=== PATIENT | male | born 1990 | race Two or more races ===

== ENCOUNTER 2019-07-25 04:14 | Inpatient (IN) | payer MEDICAID ==
[~2019-07-25] VITALS: Ht 172.7 cm; Wt 70.4 kg
[2019-07-25] MEDS ORDERED: ONDANSETRON 2MG/ML, 2ML ONE ×2 (04:58→15:44)
[2019-07-25] MEDS ORDERED: MORPHINE SULFATE 4 MG/ML, 1ML ONE ×3 (04:58→13:14)
[2019-07-25] MEDS ORDERED: SODIUM CHLORIDE FLUSH 10ML SYR IVF ONE (05:00)
[2019-07-25] MEDS ORDERED: ONDANSETRON 2MG/ML, 2ML IVPush ONE (05:00)
[2019-07-25] MEDS: MORPHINE SULFATE 4 MG/ML, 1ML IVPush PRN ×2 (05:01→06:37)
--- NOTE | 2019-07-25 05:02 | NUR ---
RECEIVED REPORT FROM DELVIN SALAS (BREAK RN) TO ASSUME CARE OF PT. PT. MEDICATED PER OCT. 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 C/O NAUSE. DENIES PMHX.
[2019-07-25 05:12] LABS: BASOPHILS # (AUTO) 0.06 x10^3/uL (0-0.1); BASOPHILS % (AUTO) 1 % (0-1); EOSINOPHILS % (AUTO) 2 % (1-7); LYMPHOCYTES # (AUTO) 2.72 x10^3/uL (1-3.4); LYMPHOCYTES % (AUTO) 25 % (22-44); MD NO; MEAN CORPUSCULAR HEMOGLOBIN 30.4 pg (27.5-34.5); MEAN CORPUSCULAR HGB CONC 32.6 g/dL (33.2-36.2); MEAN CORPUSCULAR VOLUME 93.3 fL (81-97); MEAN PLATELET VOLUME 7.9 fL (7.4-10.4); MONOCYTES % (AUTO) 7 % (2-9); NEUTROPHILS % (AUTO) 66 % (42-75); PLATELET COUNT 234 x10^3/uL (130-400); RED CELL DISTRIBUTION WIDTH 14.4 % (9.4-14.8)
[2019-07-25 05:20] LABS: CULTURE INDICATED? YES; MICROSCOPIC INDICATED
[2019-07-25 05:23] LABS: ALBUMIN 4.1 g/dL (3.4-5.0); ANION GAP 8 mmol/L (5-15); CALCIUM 9.4 mg/dL (8.5-10.1); CHLORIDE 112 mmol/L (98-107)
[2019-07-25 05:27] LABS: ALANINE AMINOTRANSFERASE 27 U/L (12-78); ALKALINE PHOSPHATASE 76 U/L (45-117); CREATININE 0.97 mg/dL (0.7-1.3); TOTAL PROTEIN 7.8 g/dL (6.4-8.2)
--- NOTE | 2019-07-25 05:29 | NUR ---
PT. RETURN FROM CT AT THIS TIME.
--- NOTE | 2019-07-25 05:56 | NUR ---
PT. REPORTS PAIN IS DOWN TO 1/10 FROM 04/22. VSS. PT. DENIES NEEDS AT THIS TIME. MONITORS IN PLACE. ALL SAFETY MEASURES OBSRVED.
--- NOTE | 2019-07-25 06:25 | NUR ---
ALL RESULTS BACK; DR. DUARTE IN TO DISCUSS POC WITH PT. AT THIS TIME.
[2019-07-25] MEDS ORDERED: KETOROLAC 30 MG/1 ML ONE (06:28)
[2019-07-25] MEDS ORDERED: KETOROLAC 30 MG/1 ML IVPush ONE (06:30)
--- NOTE | 2019-07-25 06:59 | NUR ---
REPORT FROM KADEN, ASSUME CARE OF PT AT THIS TIME. AWAITING UROLOGY CONSULT.
[2019-07-25] MEDS ORDERED: SODIUM CHLORIDE 0.9%, 500ML IVBOLUS ONE (07:30)
[2019-07-25] MEDS ORDERED: MORPHINE SULFATE 4 MG/ML, 1ML IVPush PRN ×2 (07:30→17:00)
--- NOTE | 2019-07-25 08:03 | NUR ---
PT RESTING COMFORTABLY AT THIS TIME. AWAITING ADMIT BED.
[2019-07-25] MEDS ORDERED: TRAZODONE 50MG TABLET PO PRN (08:30)
[2019-07-25] MEDS ORDERED: ACETAMINOPHEN 325 MG TABLET PO PRN (08:30)
[2019-07-25] MEDS ORDERED: BUTALB/APAP/CAFFEINE 50MG/325MG/40MG PO PRN (08:30)
[2019-07-25] MEDS ORDERED: ONDANSETRON 2MG/ML, 2ML IVPush PRN (08:30)
[2019-07-25] MEDS ORDERED: IBUPROFEN 600 MG TABLET PO PRN (08:30)
[2019-07-25] MEDS ORDERED: ONDANSETRON ODT 4 MG PO PRN (08:30)
[2019-07-25] MEDS ORDERED: hydrALAzine 20 MG/ML, 1ML IVPush PRN (08:30)
--- NOTE | 2019-07-25 08:47 | NUR ---
CONTINUE TO AWAIT ADMIT BED. VSS/UPDATED IN COMPUTER. PT SLEEPING INTERMITTENTLY, STATES NO PAIN AT THIS TIME. CALL LIGHT WITHIN REACH.
[2019-07-25] MEDS ORDERED: CEFTRIAXONE PMX 1GM/50ML 50 ML ONE (09:35)
[2019-07-25] MEDS ORDERED: NICOTINE 21 MG/24 HR PATCH.TD24 ONE (09:35)
[2019-07-25] MEDS: CEFTRIAXONE PMX 1GM/50ML 50 ML IV SCH ×2 (09:44→21:56)
[2019-07-25] MEDS: NICOTINE 21 MG/24 HR PATCH.TD24 TD SCH (09:45)
--- NOTE | 2019-07-25 09:47 | NUR ---
PT ASKING TO GO OUT FOR SMOKE BREAK AND TO EAT. PT TEACHING REGARDING NEED TO STAY IN ROOM, HOLD IN ER UNTIL ADMIT BED OR SURGERY READY, NPO. ALL QUESTIONS ANSWERED. ROCEPHIN INFUSING, NICOTINE PATCH APPLIED.
--- NOTE | 2019-07-25 11:00 | NUR ---
PT SLEEPING, NAD. AWAITING ADMISSION.
--- NOTE | 2019-07-25 12:21 | NUR ---
PT SLEEPING, NAD. AWAITING ADMISSION.
--- NOTE | 2019-07-25 12:35 | NUR ---
PER THROUGHPUT, NO ROOM AVAIL ON SURGICAL FLOOR. SURGERY SCHEDULED FOR 1700. CONTINUE TO HOLD PT IN ED UNTIL ROOM OR OR AVAILABLE.
--- NOTE | 2019-07-25 13:01 | NUR ---
TASK RN: Sent yellow slip to pharmacy to request medication per EMAR.
--- NOTE | 2019-07-25 13:22 | NUR ---
TASK RN: Provided medication per EMAR. NADN. No needs expressed. Call light within reach. Pt connected to NIBP cuff and continous pulse ox monitor. Bedrails up x 2.
[2019-07-25] MEDS: D5%-0.45NACL+KCL 20MEQ 1,000 ML IV SCH ×2 (14:05→19:57)
--- NOTE | 2019-07-25 14:23 | NUR ---
ATTEMPT TO CALL REPORT, RN UNAVAILABLE-WILL CALL BACK.
[2019-07-25 14:58] VITALS: BP 112/68
[2019-07-25] MEDS ORDERED: FENTANYL PF 250 MCG/5ML ONE (15:26)
[2019-07-25] MEDS ORDERED: MIDAZOLAM 1 MG/ML, 2ML ONE (15:26)
[2019-07-25] MEDS ORDERED: PROPOFOL 50 ML ONE (15:26)
[2019-07-25] MEDS ORDERED: DEXAMETHASONE 4 MG/ML, 1ML ONE (15:44)
[2019-07-25] MEDS ORDERED: PROPOFOL 10 MG/ML, 20ML ONE (15:44)
[2019-07-25] MEDS ORDERED: OMNIPAQUE 350 MG/ML, 50 ML BOTTLE ONE (16:47)
[2019-07-25] MEDS ORDERED: FENTANYL PF 100 MCG/2ML IV PRN (17:00)
[2019-07-25] MEDS ORDERED: MIDAZOLAM 1 MG/ML, 2ML IV PRN (17:00)
[2019-07-25] MEDS ORDERED: DIAZEPAM 5 MG/ML, 2ML IVPush PRN (17:00)
[2019-07-25] MEDS ORDERED: ONDANSETRON 2MG/ML, 2ML IV PRN (17:00)
[2019-07-25] MEDS ORDERED: PROMETHAZINE 25 MG/ML, 1ML IV PRN (17:00)
[2019-07-25] MEDS ORDERED: ONDANSETRON ODT 8 MG PO PRN (17:00)
[2019-07-25] MEDS ORDERED: DIPHENHYDRAMINE 50 MG/ML, 1ML IVPush PRN (17:00)
[2019-07-25] MEDS ORDERED: MEPERIDINE/PF 25MG/ML,1ML IVPush PRN (17:00)
[2019-07-25] MEDS ORDERED: OXYcodone 5 MG/5 ML ORAL.SOL UDC PO PRN (17:00)
[2019-07-25] MEDS ORDERED: EPHEDRINE 50 MG/ML, 1ML IVPush PRN (17:00)
[2019-07-25] MEDS ORDERED: EPHEDRINE 50 MG/ML, 1ML IM PRN (17:00)
[2019-07-25] MEDS: HYDROmorphone 2 MG/ML, 1ML IVPush PRN ×2 (18:11→18:32)
[2019-07-25] MEDS: HYDROcodone/APAP 5/325 TABLET PO PRN ×2 (18:31→22:47)
[2019-07-25] MEDS: KETOROLAC 30 MG/1 ML IV PRN (19:57)
[2019-07-25 20:53] VITALS: BP 102/62
[2019-07-26 01:49] VITALS: BP 108/68
[2019-07-26] MEDS: D5%-0.45NACL+KCL 20MEQ 1,000 ML IV SCH (04:00)
[2019-07-26] MEDS: HYDROcodone/APAP 5/325 TABLET PO PRN ×2 (04:11→08:54)
[2019-07-26] MEDS: KETOROLAC 30 MG/1 ML IV PRN (04:11)
[2019-07-26] MEDS: HYDROmorphone 2 MG/ML, 1ML IVPush PRN (04:24)
[2019-07-26 06:19] LABS: BASOPHILS # (AUTO) 0.02 x10^3/uL (0-0.1); BASOPHILS % (AUTO) 0 % (0-1); EOSINOPHILS # (AUTO) 0.06 x10^3/uL (0-0.4); EOSINOPHILS % (AUTO) 1 % (1-7); LYMPHOCYTES # (AUTO) 1.31 x10^3/uL (1-3.4); LYMPHOCYTES % (AUTO) 13 % (22-44); MD NO; MEAN CORPUSCULAR HEMOGLOBIN 30.7 pg (27.5-34.5); MEAN CORPUSCULAR VOLUME 93.1 fL (81-97); MEAN PLATELET VOLUME 7.8 fL (7.4-10.4); MONOCYTES # (AUTO) 0.79 x10^3/uL (0.2-0.8); MONOCYTES % (AUTO) 8 % (2-9); NEUTROPHILS # (AUTO) 8.22 x10^3/uL (1.8-6.8); NEUTROPHILS % (AUTO) 79 % (42-75); PLATELET COUNT 198 x10^3/uL (130-400); RED BLOOD COUNT 4.41 x10^6/uL (4.38-5.82)
[2019-07-26 06:30] LABS: ANION GAP 3 mmol/L (5-15); CALCIUM 8.3 mg/dL (8.5-10.1); CHLORIDE 109 mmol/L (98-107); CREATININE 0.89 mg/dL (0.7-1.3)
[2019-07-26 07:29] VITALS: BP 107/63
[2019-07-26] MEDS ORDERED: CEFD300C37 PO (08:00)
[2019-07-26] MEDS: NICOTINE 21 MG/24 HR PATCH.TD24 TD SCH (08:30)
[2019-07-26] MEDS: CEFTRIAXONE PMX 1GM/50ML 50 ML IV SCH (08:54)
== END 2019-07-26 09:25 | disposition home or self-care (01) | DRG 660 ==
LOC: ED 06:31 → EDIP 07:14 → 4NE 14:52 → DCLOUNGE 07-26 09:19
PROVIDERS: ADMIT Family Medicine; ATTEND Family Medicine
PROC: 0TF78ZZ Fragmentation in Left Ureter, Via Natural or Artificial Opening Endoscopic (ICD-10-PCS; 2019-07-25)
PROC: BT1F1ZZ Fluoroscopy of Left Kidney, Ureter and Bladder using Low Osmolar Contrast (ICD-10-PCS; 2019-07-25)
PROC: 0T778DZ Dilation of Left Ureter with Intraluminal Device, Via Natural or Artificial Opening Endoscopic (ICD-10-PCS; principal; 2019-07-25 13:30)
DX: N13.6 Pyonephrosis (principal); N13.8 Other obstructive and reflux uropathy; F12.90 Cannabis use, unspecified, uncomplicated; F17.210 Nicotine dependence, cigarettes, uncomplicated
CPT/HCPCS: 36415; 74176; 74420; 80048; 80053; 81001; 82360; 83690; 85025; 87086; 88300; 96374; 96375; 96376; 99285; C1726; G0378; J0696; J1100; J1170; J1885; J2250; J2405; J2704; J3010; Q9967; C1758; C2617; J2270; J3480; J7040

== ENCOUNTER 2019-11-19 20:30 | Emergency (ER) | payer MEDICAID ==
[~2019-11-19] VITALS: Ht 172.7 cm; Wt 69.0 kg
[~2019-11-19 20:30] MED LIST: CEFD300C37 PO
--- NOTE | 2019-11-19 21:08 | NUR ---
URINE SENT TO LAB
[2019-11-19 21:19] LABS: CULTURE INDICATED? YES; MICROSCOPIC INDICATED
[2019-11-19] MEDS ORDERED: CEFTRIAXONE 250 MG IM ONE (21:30)
[2019-11-19] MEDS ORDERED: AZITHROMYCIN 500 MG TABLET PO ONE (21:30)
[2019-11-19] MEDS ORDERED: AZITHROMYCIN 500 MG TABLET ONE (21:33)
[2019-11-19] MEDS ORDERED: CEFTRIAXONE 250 MG ONE (21:33)
[2019-11-19] MEDS ORDERED: LIDOCAINE-MPF 1%, 2ML ONE (21:33)
--- NOTE | 2019-11-19 21:44 | NUR ---
SHRUTHI RN: ASSISTED IN PT CARE. PT MEDICATED PER OCT. NO S/S OF ACUTE DISTRESS. PT TO BE D/C HOME.
[2019-11-19 21:54] VITALS: BP 111/73
== END 2019-11-19 21:56 | disposition home or self-care (01) ==
LOC: ED 21:30
DX: A56.01 Chlamydial cystitis and urethritis (principal); A54.01 Gonococcal cystitis and urethritis, unspecified; F17.210 Nicotine dependence, cigarettes, uncomplicated
CPT/HCPCS: 81001; 87086; 87491; 87591; 96372; 99283; J0696

== ENCOUNTER 2019-11-30 09:26 | Emergency (ER) | payer MEDICAID ==
[~2019-11-30] VITALS: Ht 172.7 cm; Wt 70.4 kg
[2019-11-30 09:28] VITALS: BP 131/74
--- NOTE | 2019-11-30 10:07 | NUR ---
Mikael RN. Pt states back pain, states hx of same since falling off a ladder in 2015. States today he is having a "flair up." Pt awaiting ERMD assessment. Pt given warm blanket for comfort.
[2019-11-30] MEDS ORDERED: KETOROLAC 30 MG/1 ML IM ONE (10:30)
[2019-11-30] MEDS ORDERED: METHOCARBAMOL 750 MG TABLET PO ONE (10:30)
[2019-11-30] MEDS ORDERED: KETOROLAC 60 MG/2 ML ONE (10:31)
[2019-11-30] MEDS ORDERED: METHOCARBAMOL 750 MG TABLET ONE (10:31)
--- NOTE | 2019-11-30 10:57 | NUR ---
REPORT RECEIVED FROM TASK RN SANTO. AWAITING DC PAPERWORK FROM AT THIS TIME.
--- NOTE | 2019-11-30 12:11 | NUR ---
Patient/Caregiver given discharge instructions and they have confirmed that they understand the instructions. Patient ambulatory with steady gait.
== END 2019-11-30 12:12 | disposition home or self-care (01) ==
LOC: ED 09:51
DX: M54.6 Pain in thoracic spine (principal); M79.18 Myalgia, other site; F17.200 Nicotine dependence, unspecified, uncomplicated
CPT/HCPCS: 99283

== ENCOUNTER 2020-02-13 07:41 | Emergency (ER) | payer MEDICAID ==
[~2020-02-13] VITALS: Ht 172.7 cm; Wt 68.0 kg
--- NOTE | 2020-02-13 07:55 | NUR ---
TASK RN ASSISTING PRIMARY RN COLT WITH PT CHECK IN. 29 Y/O M PRESENTS STATING "MY WORK TOLD ME I HAVE TO HAVE A NEGATIVE COVID TEST BECUASE I WAS SNEEZING AND COUGHED ONCE AT WORK, I FEEL FINE, THINK IT'S ALLERGIES BUT THEY'RE MAKING ME." DENIES ANY CONTACT WITH ANY COVID + PERSONS. CONT PULSE OX, BP MONITORS IN PLACE. VSS. AYAH HUGHES AT BEDSIDE FOR EVALUATION AND COVID SWAB. CALL LIGHT IN REACH. FALL PRECAUTIONS IN PLACE. SIDE RAILS UPX2. DENIES ANY PAIN, CP, SOB, N/V/D, FEVER, CHILLS OR RECENT TRAVEL.
[2020-02-13 07:58] VITALS: BP 123/70
--- NOTE | 2020-02-13 08:00 | NUR ---
BEDSIDE REPORT AND TRANSFER OF CARE TO PRIMARY DELVIN GREGORY AT THIS TIME
--- NOTE | 2020-02-13 08:57 | NUR ---
DISCHARGE INSTRUCTIONS REVIEWED.
== END 2020-02-13 08:59 | disposition home or self-care (01) ==
LOC: ED 08:12
DX: Z11.59 Encounter for screening for other viral diseases (principal); G89.29 Other chronic pain; Z00.00 Encounter for general adult medical examination without abnormal findings
CPT/HCPCS: 36415; 87635; 99283

== ENCOUNTER 2020-06-06 20:50 | Emergency (ER) | payer MEDICAID ==
[~2020-06-06] VITALS: Ht 172.7 cm; Wt 72.5 kg
[2020-06-06 20:54] VITALS: BP 115/59
[2020-06-06] MEDS ORDERED: ONDANSETRON ODT 4 MG PO ONE (22:00)
[2020-06-06] MEDS ORDERED: DICYCLOMINE 10 MG/ML, 2ML IM ONE (22:00)
--- NOTE | 2020-06-06 22:08 | NUR ---
Patient given discharge instructions and they have confirmed that they understand the instructions. Patient ambulatory with steady gait TO DISCHARGE DESK.
== END 2020-06-06 22:10 | disposition home or self-care (01) ==
LOC: ED 22:00
DX: S00.511A Abrasion of lip, initial encounter (principal); K12.1 Other forms of stomatitis; R23.4 Changes in skin texture; G89.29 Other chronic pain; X58.XXXA Exposure to other specified factors, initial encounter; Y93.89 Activity, other specified; Y92.89 Other specified places as the place of occurrence of the external cause; Y99.8 Other external cause status
CPT/HCPCS: 99281

== ENCOUNTER 2020-06-20 05:50 | Emergency (ER) | payer MEDICAID ==
[~2020-06-20] VITALS: Ht 172.7 cm; Wt 71.5 kg
[2020-06-20 05:57] VITALS: BP 123/81
--- NOTE | 2020-06-20 07:40 | NUR ---
PT AMBULATORY, VSS. NO COMPLAINTS. NO RESPIRATORY DISTRESS. VERBALIZED UNDERSTANDING OF DISCHARGE INSTRUCTIONS.
== END 2020-06-20 07:42 | disposition home or self-care (01) ==
LOC: ED 07:28
DX: J06.9 Acute upper respiratory infection, unspecified (principal); Z20.828 Contact with and (suspected) exposure to other viral communicable diseases; I51.7 Cardiomegaly; R94.31 Abnormal electrocardiogram [ECG] [EKG]; R07.9 Chest pain, unspecified; R05 Cough; M79.10 Myalgia, unspecified site
CPT/HCPCS: 87635; 93005; 99284